=== PATIENT | female | born 1960 | race Caucasian/White ===

== ENCOUNTER 2020-01-13 15:20 | Emergency (ER) | payer OTHER ==
[2020-01-13 15:58] VITALS: BP 102/74
--- NOTE | 2020-01-13 16:24 | ED Physician Documentation ---
History of Present Illness - Stated complaint Stated Complaint: FEVER - Chief complaint Chief Complaint: Fever - History obtained from History obtained from: Patient, Family - History of Present Illness Timing: Today Pain level max: 0 Pain level now: 0 - Additonal information Additional information: Patient states she had a fever of 100.1 at home today. She denies any other symptoms. She does have a history of breast cancer. Her port has been removed. She completed all treatment in August of this last year. She states that she called the nurse advice line and they told her to go to the emergency department for evaluation. She is currently asymptomatic. Did not take anything for the fever earlier. Nothing makes it better or worse. No cough. No rhinorrhea. No congestion. No vomiting. No abdominal pain. No urinary symptoms. 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 HEENT: None Psych: None Musculoskeletal: None Derm: None - Past Surgical History Past Surgical History: Yes /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 - Social History Does the pt smoke?: No Smoking Status: Never smoker PD ED PE NORMAL - Vitals Vital signs reviewed: Yes - General General: Alert and oriented X 3, No acute distress, Well developed/nourished - HEENT HEENT: PERRL, Ears normal, Moist mucous membranes, Pharynx benign - Neck Neck: Supple, no meningeal sign, No adenopathy - Cardiac Cardiac: RRR, Strong equal pulses - Respiratory Respiratory: No respiratory distress, Clear bilaterally - Abdomen Abdomen: Soft, Non tender, Non distended - Back Back: No CVA TTP, No spinal TTP - Derm Derm: Warm and dry - Extremities Extremities: No edema - Neuro Neuro: Alert and oriented X 3 - Psych Psych: Normal mood, Normal affect Results - Vitals Vitals: Vital Signs - 24 hr 01/12/ 15:34 Temperature 37.3 C Heart Rate 99 Respiratory 18 Rate Blood Pressure 102/74 O2 Saturation 97 Oxygen O2 Source Room air - Labs Labs: Laboratory Tests 01/13/20 01/13/20 01/13/20 16:00 16:52 16:52 WBC 4.7 L RBC 4.31 Hgb 13.5 Hct 39.9 MCV 92.6 MCH 31.3 H MCHC 33.8 RDW 13.2 Plt Count 223 MPV 8.0 Neut # (Auto) 3.9 Lymph # (Auto) 0.3 L [place] # (Auto) 0.5 Eos # (Auto) 0.0 Baso # (Auto) 0.1 Absolute Nucleated RBC 0.00 Nucleated RBC % 0.0 PT 11.7 INR 1.0 APTT 32.7 Sodium Potassium Chloride Carbon Dioxide Anion Gap BUN Creatinine Estimated GFR (MDRD) Glucose Lactic Acid Calcium Total Bilirubin AST ALT Alkaline Phosphatase Total Protein Albumin Globulin Albumin/Globulin Ratio Lipase Urine Color YELLOW Urine Clarity CLEAR Urine pH 6.5 Ur Specific [place] <=1.005 Urine Protein NEGATIVE Urine Glucose (UA) NEGATIVE Urine Ketones NEGATIVE Urine Occult Blood NEGATIVE Urine Nitrite NEGATIVE Urine Bilirubin NEGATIVE Urine Urobilinogen 0.2 (NORMAL) Ur Leukocyte Esterase NEGATIVE Ur Microscopic Review NOT INDICATED Urine Culture Comments NOT INDICATED 01/13/20 01/13/20 16:52 16:52 WBC RBC Hgb Hct MCV MCH MCHC RDW Plt Count MPV Neut # (Auto) Lymph # (Auto) [place] # (Auto) Eos # (Auto) Baso # (Auto) Absolute Nucleated RBC Nucleated RBC % PT INR APTT Sodium 133 L Potassium 3.4 L Chloride 96 L Carbon Dioxide 28 Anion Gap 9.0 BUN 10 Creatinine 0.9 Estimated GFR (MDRD) 64 L Glucose 118 H Lactic Acid 1.0 Calcium 8.8 Total Bilirubin 0.6 AST 29 ALT 26 Alkaline Phosphatase 61 Total Protein 7.7 Albumin 4.5 Globulin 3.2 Albumin/Globulin Ratio 1.4 Lipase 36 Urine Color Urine Clarity Urine pH Ur Specific [place] Urine Protein Urine Glucose (UA) Urine Ketones Urine Occult Blood Urine Nitrite Urine Bilirubin Urine Urobilinogen Ur Leukocyte Esterase Ur Microscopic Review Urine Culture Comments - Rads (name of study) cxr Radiology: Prelim report reviewed, EMP read contemporaneously, See rad report (No acute disease) PD MEDICAL DECISION MAKING - ED course Complexity details: considered differential, d/w patient, d/w family ED course: 59-year-old female with a fever reportedly at home today. No fever here. No significant lab abnormalities. Not neutropenic. Normal chest x-ray. Normal urinalysis. Otherwise asymptomatic. We will have her monitor herself at home and follow-up with her doctor for further care. No indication for antibiotics at this time. No respiratory difficulties. Patient counseled regarding signs and symptoms for which I believe and urgent re-evaluation would be necessary. Patient with good understanding of and agreement to plan and is comfortable going home at this time This document was made in part using voice recognition software. While efforts are made to proofread this document, sound alike and grammatical errors may occur. Departure - Departure Disposition: Home, Self Care Clinical Impression: Fever Qualifiers: Fever type: unspecified Qualified Code(s): R50.9 - Fever, unspecified Condition: Good Instructions: ED Fever Unconf Cause Follow-Up: Your,doctor in 3 days [Other] Comments: The cause of your symptoms is unclear today. Your testing is normal. Your chest x-ray does not show any pneumonia. Your urinalysis is normal. Your blood work oes not have any significant abnormalities. Follow-up with your doctor for further care. Discharge Date/Time: 01/13/20 18:19
[2020-01-13 16:54] LABS: BASOPHILS # (AUTO) 0.1 10^3/uL (0.0-0.1); BASOPHILS % (AUTO) 1.1 %; EOSINOPHILS % (AUTO) 0.6 %; HGB - HEMOGLOBIN 13.5 g/dL (12.0-16.0); LYMPHOCYTES # (AUTO) 0.3 10^3/uL (1.5-3.5); LYMPHOCYTES % (AUTO) 6.3 %; MEAN CORPUSCULAR HEMOGLOBIN 31.3 pg (27.0-31.0); MEAN CORPUSCULAR HGB CONC 33.8 g/dL (32.0-36.0); MEAN CORPUSCULAR VOLUME 92.6 fL (81.0-99.0); MONOCYTES # (AUTO) 0.5 10^3/uL (0.0-1.0); MONOCYTES % (AUTO) 9.7 %; NEUTROPHILS # (AUTO) 3.9 10^3/uL (1.5-6.6); NEUTROPHILS % (AUTO) 81.9 %; PLT - PLATELET COUNT 223 10^3/uL (130-450); RED BLOOD COUNT 4.31 10^6/uL (4.20-5.40); RED CELL DISTRIBUTION WIDTH 13.2 % (12.0-15.0); WHITE BLOOD COUNT 4.7 x10^3/uL (4.8-10.8)
[2020-01-13 17:00] LABS: PT - PROTHROMBIN TIME 11.7 secs (9.9-12.6)
--- NOTE | 2020-01-13 17:00 | XRAY Report ---
PROCEDURE: Chest 1 View X-Ray INDICATIONS: fever TECHNIQUE: One view of the chest was acquired. COMPARISON: None FINDINGS: Surgical changes and devices: Extensive surgical clips overlying the left and right chest.. Lungs and pleura: No pleural effusions or pneumothorax. Lungs are clear. Mediastinum: Mediastinal contours appear normal. Heart size is normal. Bones and chest wall: No suspicious bony lesions. Overlying soft tissues appear unremarkable. IMPRESSION: No evidence acute pulmonary process. Reviewed by: Tera Zamora MD on 01/13/2020 3:59 PM [facility] Approved by: Tera Zamora MD on 01/13/2020 3:59 PM [facility] Station ID: [id number]
[2020-01-13 17:07] LABS: ALBUMIN 4.5 g/dL (3.2-5.5); ALBUMIN/GLOBULIN RATIO 1.4 (1.0-2.2); BILIRUBIN,TOTAL 0.6 mg/dL (0.2-1.0); CALCIUM 8.8 mg/dL (8.5-10.3); CREATININE 0.9 mg/dL (0.4-1.0); PARTIAL THROMBOPLASTIN TIME 32.7 secs (24.9-33.3); TOTAL PROTEIN 7.7 g/dL (6.7-8.2)
[2020-01-13 17:22] LABS: BILIRUBIN,URINE NEGATIVE (NEGATIVE); GLUCOSE, URINE (UA) NEGATIVE (NEGATIVE); KETONES,URINE (UA) NEGATIVE (NEGATIVE); LEUKOCYTE ESTERASE, URINE NEGATIVE (NEGATIVE); NITRITE,URINE NEGATIVE (NEGATIVE); OCCULT BLOOD,URINE NEGATIVE (NEGATIVE); PH,URINE 6.5 PH (5.0-7.5); PROTEIN,URINE NEGATIVE (NEGATIVE); UROBILINOGEN,URINE 0.2 (NORMAL) E.U./dL (NORMAL)
[2020-01-13 17:27] LABS: CLARITY,URINE CLEAR (CLEAR)
[2020-01-13] MEDS ORDERED: HYDROmorphone 1 MG/ML CARPUJECT IVP STA (17:46)
== END 2020-01-13 18:19 | disposition home or self-care (01) ==
LOC: ED 15:20
DX: R50.9 Fever, unspecified (principal); Z20.828 Contact with and (suspected) exposure to other viral communicable diseases; Z85.3 Personal history of malignant neoplasm of breast
CPT/HCPCS: 36415; 71045; 80053; 81001; 81003; 81599; 83605; 83690; 85025; 85610; 85730; 87040; 87086; 99284

== ENCOUNTER 2020-07-29 19:21 | Emergency (ER) | payer OTHER ==
[2020-07-29 19:52] VITALS: BP 118/79
[2020-07-29] MEDS ORDERED: ACETAMINOPHEN 325 MG TABLET PO ONE (23:30)
[2020-07-29] MEDS ORDERED: cephALEXin 250 MG CAPSULE PO ONE (23:31)
[2020-07-29] MEDS ORDERED: MECLIZINE 12.5 MG TABLET PO ONE (23:31)
--- NOTE | 2020-07-30 01:44 | ED Physician Documentation ---
PD HPI HEENT - Stated complaint Stated Complaint: DIZZY,EAR PX - Chief complaint Chief Complaint: Heent - History obtained from History obtained from: Patient - History of Present Illness Timing - onset: How many weeks ago (1-2) Timing - duration: Weeks (1-2) Timing - details: Gradual onset, Waxing and waning Location: Right ear Associated symptoms: Other (redness and mild swelling behind right ear the past couple days.). No: Fever, Congestion, Facial swelling, Headache Similar symptoms before: Has not had sx before Recently seen: Not recently seen Review of Systems Constitutional: denies: Fever, Chills Ears: reports: Loss of hearing (diminished), Ear pain, Other (some dizziness with head movement today). denies: Drainage/discharge Nose: denies: Rhinorrhea / runny nose, Congestion Throat: denies: Sore throat Respiratory: denies: Cough GI: reports: Nausea (mild). 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 No: Ears normal (left okay. Right with redness and fluid behing TM. Thee canal is normal appearing. Mild redness and swelling behind right ear, without percussion tenderness over the mastoids though. ) - Neck Neck: Supple, no meningeal sign, No adenopathy - Cardiac Cardiac: RRR, No murmur - Respiratory Respiratory: Clear bilaterally Results - Vitals Vitals: Oxygen O2 Source Room air PD MEDICAL DECISION MAKING - ED course Complexity details: considered differential (seems OM but also some redness behind ear. Not tender to percussion, so does not seem like mastoiditis per se. If not improved, might need imaging. [employer] down time: Rx for Keflex and norco. ), d/w patient Departure - Departure Disposition: 01 Home, Self Care Clinical Impression: Cellulitis of postauricular region, Vertigo Right otitis media Qualifiers: Otitis media type: suppurative Chronicity: acute Recurrence: non-recurrent Spontaneous tympanic membrane rupture: without spontaneous rupture Qualified Cod e(s): H66.001 - Acute suppurative otitis media without spontaneous rupture of ear drum, right ear Condition: Stable Record reviewed to determine appropriate education?: Yes Discharge Date/Time: 07/30/20 00:12
== END 2020-07-30 00:12 | disposition home or self-care (01) ==
LOC: ED 19:21
DX: H66.001 Acute suppurative otitis media without spontaneous rupture of ear drum, right ear (principal); H60.11 Cellulitis of right external ear; R42 Dizziness and giddiness
CPT/HCPCS: 99282; 99283; A9270